=== PATIENT | male | born 1940 | race Caucasian/White ===

== ENCOUNTER 2016-09-18 05:15 | Day surgery (SDC) | payer MEDICARE ==
[2016-09-17 11:56] LABS: HEMATOCRIT 42.6 % (42.0-54.0); MCH 31.1 pg (26.0-34.0); MCHC 35.2 g/dL (31.0-37.0); MCV 88.2 fL (80.0-100.0); MEAN PLATELET VOLUME 9.4 fL (7.4-10.4); RBC 4.83 10x6/uL (4.20-6.10); RDW 13.8 % (11.5-14.5); WBC 8.6 10x3/uL (4.8-10.8)
[~2016-09-18] VITALS: Ht 177.8 cm; Wt 79.4 kg
[~2016-09-18 05:15] MED LIST: ALEVE220 MG PO; ASPIRIN EC325 M1 PO; OXYCODONE HCL5 MG PO; PROTONIX40 MG PO; ZOCOR20 MG PO
[2016-09-18 07:12] VITALS: BP 135/70; Ht 177.8 cm; Wt 79.4 kg
--- NOTE | 2016-09-18 11:38 | NUR ---
1130 BACK FROM LEFT FOOT SURGERY. LEFT FOOT DRESSING C/D/I NO BLEEDING FOOT ELEVATED AND ICED HAS NO FEELING TO LEFT FOOT.HAS TALKED TO DR. ARNAUD NEAL USING LEFT HEEL ONLY AND HAS WALKER. DENIES PAIN AND NAUSEA.
--- NOTE | 2016-09-18 12:17 | NUR ---
1200 TOLERATING FULL LIQUIDS LEFT FOOT DRESSING C/D/I FOOT ELEVATED AND ICED AND C/D/I.
--- NOTE | 2016-09-18 13:47 | NUR ---
1235 IV DCD CATHETER INTACT WENT OVER DISCHARGE INSTRUCTIONS AND VERBALLY UNDERSTANDS. ASSISTED WITH DRESSING PATIENT AND TO W/C RT SIDE VERY WEAK LEFT FOOT DRESSING C/D/I.1250 TO HOME VIA W/C AND ASSISTED IN THE CAR.
--- NOTE | 2016-09-18 13:47 | NUR ---
1230 VOIDED AND RT FOOT DRESSING C/D/I NO BLEEDING.
--- NOTE | 2016-10-16 08:50 | OP ---
PATIENT NAME: MYRNA YOUNG MEDICAL RECORD: [id number] :41 LOCATION:[facility] ADMISSION DATE: SURGEON: JENNY LARES DPM DATE OF OPERATION: 09/18/2016 PREOPERATIVE DIAGNOSES: 1. Hallux abductovalgus, left foot. 2. Plantar plate rupture, left second metatarsophalangeal joint 3. Hammertoe, left second digit. POSTOPERATIVE DIAGNOSES: 1. Hallux abductovalgus, left foot. 2. Plantar plate rupture, left second metatarsophalangeal joint 3. Hammertoe, left second digit PROCEDURES: 1. Michi bunionectomy, left foot. 2. Mary osteotomy, left second metatarsal. 3. Plantar plate repair, left second MPJ. 4. PIPJ fusion, left second digit. ANESTHESIA: Local with IV sedation utilizing lidocaine and Marcaine plain, approximately 18 cc total of lidocaine and Marcaine plain. HEMOSTASIS: Left thigh tourniquet at 350 mmHg. PREOPERATIVE DETAILS: The patient was taken to the OR, placed on the operating table in supine position. This was followed by induction of general anesthesia and infiltration of local anesthetic around the 1st and 2nd ray. The left extremity was then prepped and draped in the usual aseptic technique followed by elevation of extremity and inflation of tourniquet. PROCEDURE NUMBER ONE: Michi bunionectomy, left foot. A 15-blade was used to create a 2 cm linear incision over the dorsal aspect of the proximal phalanx of the hallux. The incision was deepened down to the periosteum, which was freed. A sagittal saw was used to remove the lateral based wedge. The osteotomy was closed and then fixated with a 2.7 mm screw. Fluoroscopy was used to verify good alignment, as well as screw placement. Excellent rigid internal fixation was achieved. The wound was flushed. The deep tissue was repaired with 2-0 Vicryl, the subcutaneous tissue with 4-0 Rapide and the skin was closed with 4-0 Rapide in a subcuticular technique followed by Dermabond. PROCEDURE NUMBER TWO: Mary osteotomy, left second metatarsal. A 15-blade was used to create a curvilinear incision extending from the midshaft of the second metatarsal all the way dorsal aspect of the PIPJ of the left second toe. The incision was deepened down through subcutaneous tissue, extensor longus tendon which was transected in a Z fashion exposing the capsule to the second MPJ. A linear capsulotomy was performed and the head of the second metatarsal was delivered. There was noted to be total dislocation of the proximal phalanx on top of the metatarsal head. A McGlamry scoop elevator was used to free the plantar structures and at this time, a sagittal saw was used to create a Mary osteotomy from dorsal distal to plantar proximal of the metatarsal head. The capital fragment was transtranslocated proximally and fixated temporarily with a 0.062 inch K-wire. Another K-wire was placed in the mid shaft of the proximal phalanx of the second digit and wire retractor was placed over the wires and the OPERATIVE REPORT [id number] HANNAHMYRNA P joint was distracted. PROCEDURE NUMBER THREE: Plantar plate repair, left second MPJ. Upon initial inspection, the plantar plate was entirely ruptured from medial to lateral and retracted up on the metatarsal head. Therefore, it was deemed unable to do a primary repair of the plantar plate. The flexor longus and flexor brevis were visible in the deficit and the FiberWire was placed through both tendons, 2 small drill holes were made in the base of the proximal phalanx of the second digit and the FiberWire was passed up through the drill holes. At this time, the wires were removed from the second metatarsal, as well as the proximal phalanx and the fragment of the Mary osteotomy was fixated, putting the metatarsal head in the proper position with 2 popoff screws. At this time, the FiberWire was passed up through the base of the proximal phalanx with the digit being held in a slightly plantarflexed position surgeon knots were tied tightening the flexure construct to give the digits stability following the surgeon's knots with loading the foot. The digit was in a much better position, essentially rectus procedure #4 PIPJ fusion, left 2nd digit, the incision as described above was utilized to the extensor tendon was freed from the dorsal aspect of the PIPJ. A sagittal saw was used to resect the head of the proximal phalanx and the base of the middle phalanx, a 2.7 drill was then drilled in both and the TenFuse 2.7 graft was placed in the proximal phalanx and the capital fragment was placed on top of the graft allowing excellent fixation of the PIPJ. The wound was flushed. The capsule of the MPJ was then repaired with 2-0 Vicryl. The extensor longus tendon was then repaired with 4-0 Rapide. The subcutaneous tissue was closed, brought together with 4-0 Rapide and the skin was closed with 4-0 Rapide in a subcuticular technique followed by Dermabond. Adaptic, 4 x 4 and Conform were used to dress the wound followed by application of a modified Strange compression dressing. Tourniquet was deflated. POSTOPERATIVE DETAILS: The patient tolerated the procedures well and left the OR with vital signs stable and vascular status at preoperative levels. The patient was transported to recovery per anesthesia in stable condition. TRANSINT:[id number] Voice Confirmation ID: [id number] DOCUMENT ID: [id number] JENNY LARES DPM at 0850 CC: [id number] DICTATION DATE: 09/18/16 1109 [employer] ARCHITECT: 09/18/16 1820 [facility] 09/18/16 [facility] [address] [place] [address]
== END 2016-09-18 12:50 | disposition home or self-care (01) ==
LOC: D.OPS 05:15 → D.PAN 10:00 → D.OPS 10:00
PROVIDERS: Anesthesiology
DX: M20.12 Hallux valgus (acquired), left foot (principal); M24.275 Disorder of ligament, left foot; M20.42 Other hammer toe(s) (acquired), left foot

== ENCOUNTER 2016-10-06 08:03 | Emergency (ER) | payer MEDICARE ==
[2016-09-18 07:12] VITALS: BMI 25.1
[2016-10-06 08:42] LABS: BASOPHILS 0.2 % (0.0-2.0); EOSINOPHILS 0.3 % (0-7); HEMATOCRIT 38.1 % (42.0-54.0); HEMOGLOBIN 13.1 g/dL (13.5-17.5); IMMATURE GRANULOCYTES 0.3 % (0-5); LYMPHOCYTES 8.5 % (15-50); MCH 31.3 pg (26.0-34.0); MCHC 34.4 g/dL (31.0-37.0); MCV 91.1 fL (80.0-100.0); MONOCYTES 7.9 % (2-11); NEUTROPHILS 82.8 % (40-80); RBC 4.18 10x6/uL (4.20-6.10); RDW 13.4 % (11.5-14.5); WBC 11.9 10x3/uL (4.8-10.8)
[2016-10-06 08:46] LABS: PLATELET COUNT 346 10x3/uL (130-400)
== END 2016-10-06 10:30 | disposition home or self-care (01) ==
LOC: D.ER 08:03
PROVIDERS: Emergency Medicine
DX: R10.9 Unspecified abdominal pain (principal); J18.9 Pneumonia, unspecified organism

== ENCOUNTER → 2017-10-22 13:16 | Outpatient (CLI) | payer MEDICARE ==
[2016-09-18 07:12] VITALS: BMI 25.1
== END | disposition home or self-care (01) ==
LOC: D.RT 13:16
DX: R06.00 Dyspnea, unspecified (principal)

== ENCOUNTER → 2018-01-29 14:55 | Outpatient (CLI) | payer MEDICARE ==
[2016-09-18 07:12] VITALS: BMI 25.1
== END | disposition home or self-care (01) ==
LOC: D.MRI 14:55
DX: R42 Dizziness and giddiness (principal); G46.4 Cerebellar stroke syndrome

== ENCOUNTER 2018-10-21 09:40 | Emergency (ER) | payer MEDICARE ==
[~2018-10-21] VITALS: Ht 177.8 cm; Wt 77.3 kg
[2018-10-21 09:45] VITALS: Ht 177.8 cm; Wt 77.3 kg
[2018-10-21] MEDS ORDERED: VOLTAREN75 MG PO (10:31)
[2018-10-21] MEDS ORDERED: BACLOFEN20 M1 PO (10:31)
[2018-10-21 11:10] VITALS: BP 124/70
== END 2018-10-21 11:05 | disposition home or self-care (01) ==
LOC: D.ER 09:40
DX: M54.31 Sciatica, right side (principal)

== ENCOUNTER → 2018-11-06 13:29 | Outpatient (CLI) | payer MEDICARE ==
[2018-10-21 09:45] VITALS: BMI 24.4
[~2018-11-06 13:29] MED LIST changes: +BACLOFEN20 M1 PO; +VOLTAREN75 MG PO
== END | disposition home or self-care (01) ==
LOC: D.MRI 13:29
PROVIDERS: ATTEND Family Medicine
DX: M54.16 Radiculopathy, lumbar region (principal)

== ENCOUNTER → 2019-08-17 11:11 | Outpatient (CLI) | payer MEDICARE ==
[2018-10-21 09:45] VITALS: BMI 24.4
== END | disposition home or self-care (01) ==
LOC: D.MRI 08-13 10:30
PROVIDERS: ATTEND Family Medicine
DX: M51.16 Intervertebral disc disorders with radiculopathy, lumbar region (principal)